=== PATIENT | male | born 1965 | race Caucasian/White ===

== ENCOUNTER → 2022-02-25 | Outpatient (CLI) | payer MEDICAID, SELFPAY ==
--- NOTE | 2022-02-25 16:55 | CT_ITS ---
STUDY: CT ABDOMEN AND PELVIS WITH CONTRAST REASON FOR EXAM: Male, 57 years old. iron deficiency anemia, abd pain -- oral and iV RADIATION DOSAGE (If Supplied By Facility): CTDIvol = ( 7.68 ) mGy, DLP = ( 455.85 ) mGycm TECHNIQUE: Transaxial 3.75 mm images were obtained from the dome of the diaphragm to the symphysis pubis with oral contrast. IV 100mL Isovue-300 was administered. Sagittal and coronal images were reconstructed. Individualized dose optimization techniques were used for this CT. COMPARISON: None. FINDINGS: Small peripheral pleural-based nodules 0.2 in the right lower lobe. The visualized portions of the heart are within normal limits. Normal liver. Mild contraction of the gallbladder and normal extrahepatic biliary system. Normal spleen. Normal pancreas. Normal bilateral adrenal glands. Subcentimeter right renal cyst. Normal left kidney. Normal visualized stomach. Normal small intestine. Normal colon. There is non-visualization of the appendix. Normal abdominal aorta. Normal inferior vena cava. Normal retroperitoneum. Normal urinary bladder. The prostate is age appropriate. There is a left-sided inguinal hernia containing adipose tissue. Age-appropriate osseous structures. CT/Abdomen/Pelvis WITH Contrast IMPRESSION: There is no acute abdomen and pelvic pathology. Other nonacute findings as outlined above. Small less than 3 mm nodule in the right lower lobe periphery can be an incidental finding. Depending on clinical suspicion level follow-up examination with CT chest or comparison with prior examination performed elsewhere may be advantageous. The?Fleischner Society pulmonary nodule recommendations 2017 guidelines Multiple Multiple nodules size: <6 mm * low-risk patients: no routine follow-up * high-risk patients: optional CT at 12 months Multiple nodules size: 6-8 mm * low-risk patients: follow-up at 3-6 months, then consider further follow-up at 18-24 months * high-risk patients: follow-up at 3-6 months, then at 18-24 months if no change Multiple nodules size: >8 mm * low-risk patients: follow-up at 3-6 months, then consider further follow-up at 18-24 months * high-risk patients: follow-up at 3-6 months, then at 18-24 months if no change Note:?newly detected indeterminate nodule in persons 35 years of age or older * low-risk patients:?a minimal or absent history of smoking and or other known risk factors * high-risk patients:?a history of smoking or of other known risk factors (e.g. first degree relative with lung cancer, or exposure to?asbestos, radon, uranium) * if a nodule up to 8 mm is partly solid or is ground glass further follow-up is required after 24 months to exclude possible slow growing adenocarcinoma? * Electronically Signed: Donna Mcclure MD at 4:01 EDT Reading Location ID and State: , Service support ,
== END | disposition home or self-care (01) ==
LOC: CT 16:53
PROVIDERS: PCP Internal Medicine Hematology & Oncology; Referring Provider Nurse Practitioner Adult Health; Visit Provider Nurse Practitioner Adult Health
DX: D50.9 Iron deficiency anemia, unspecified (principal); R10.9 Unspecified abdominal pain
CPT/HCPCS: 74177; Q9967